=== PATIENT | female | born 1950 | race Asian ===

== ENCOUNTER 2016-02-11 18:45 | Inpatient (IN) | payer MEDICARE, MEDICAID ==
[~2016-02-11] VITALS: Ht 157.5 cm; Wt 50.8 kg
[~2016-02-11 18:45] MED LIST: UNOBMED
[2016-02-11 20:00] LABS: BASOPHILS % (AUTO) 0.6 % (0.0-2.0); EOSINOPHILS % (AUTO) 0.8 % (0.0-3.0); LYMPHOCYTES % (AUTO) 13.1 % (20.0-45.0); MEAN CORPUSCULAR HGB CONC 31.6 G/DL (32.0-36.0); MEAN CORPUSCULAR VOLUME 95 FL (80-99); MEAN PLATELET VOLUME 6.7 FL (6.5-10.1); MONOCYTES % (AUTO) 4.5 % (1.0-10.0); NEUTROPHILS % (AUTO) 80.9 % (45.0-75.0); PLATELET COUNT 183 K/UL (150-450); RED BLOOD COUNT 4.42 M/UL (4.20-5.40); RED CELL DISTRIBUTION WIDTH 11.8 % (11.6-14.8)
[2016-02-11 20:02] VITALS: BP 112/66
[2016-02-11 20:16] LABS: TROPONIN I < 0.30 ng/mL (<=0.30)
[2016-02-11 20:19] LABS: ALBUMIN/GLOBULIN RATIO 1.6 (1.0-2.7); CALCIUM 9.6 mg/dL (8.6-10.2); GLOMERULAR FILTRATION RATE 55.7 mL/min (>60); POTASSIUM 4.2 mEQ/L (3.4-4.9); TOTAL PROTEIN 7.6 g/dL (6.6-8.7)
[2016-02-11 20:34] VITALS: BP 126/71
[2016-02-11 20:51] LABS: CKMB < 1.5 ng/mL (< 3.8)
[2016-02-11 22:06] VITALS: BP 120/54
--- NOTE | 2016-02-11 22:08 | Emergency Room Report ---
History of Present Illness General Chief Complaint: Seizure Source: Patient, EMS Present Illness HPI This patient is brought in by EMS. She was at a restaurant and was observed having right EMS say was a seizure. The patient states that she looks to the side and suddenly felt lightheaded and fainted. The patient was confused after the event. At this time, the patient feels back to baseline. Patient states that she had a similar episode previously and was found to have an insufficient heart valve. She is unsure which valve. She states that she has a planned valve replacement on the of this month. She denies recent illness. She denies nausea or vomiting. She denies abdominal pain or chest pain. She has no other complaints. Allergies: Coded Allergies: UNABLE TO ASSESS (Unverified , 02/11/16) Patient History Past Medical History: see triage record, other - Heart valve insufficiency Social History: Denies: alcohol use, drug use, smoking Reviewed Nursing Documentation: PMH: Agreed, PSxH: Agreed Nursing Documentation-PMH Past Medical History: Deferred Review of Systems All Other Systems: negative except mentioned in HPI Physical Exam Vital Signs Date Time Temp Pulse Resp B/P Pulse Ox O2 Delivery O2 Flow Rate FiO2 02/11/16 18:38 97.7 116 20 144/93 99 Room Air Sp02 EP Interpretation: reviewed, normal General Appearance: no apparent distress, alert, GCS 15, non-toxic Head: normocephalic, atraumatic Eyes: bilateral eye PERRL, bilateral eye normal inspection ENT: hearing grossly normal, normal pharynx, no angioedema, normal voice Neck: full range of motion, supple/symm/no masses Respiratory: chest non-tender, lungs clear, normal breath sounds, speaking full sentences Cardiovascular #1: regular rate, rhythm, no edema Gastrointestinal: normal bowel sounds, non tender, soft, non-distended, no guarding, no rebound Rectal: deferred Musculoskeletal: back normal, gait/station normal, normal range of motion, non- tender Neurologic: alert, oriented x3, responsive, motor strength/tone normal, sensory intact, speech normal Psychiatric: judgement/insight normal, memory normal, mood/affect normal, no suicidal/homicidal ideation Skin: normal color, no rash, warm/dry, well hydrated Medical Decision Making Diagnostic Impression: Primary Impression: Syncope vs seizure ER Course This patient presents with an episode that is of uncertain type. This is a syncope versus a seizure. This could be complicated syncope. Regardless, the patient has structural heart disease. She is a planned bowel replacement. She is high risk for pathologic arrhythmia causing either syncope or seizure. She did have a PE on telemetry here in the emergency department. No pathologic rhythm on the monitor. This patient will be admitted on telemetry for observation and further evaluation and treatment. Labs Test 02/11/16 19:45 02/11/16 21:38 White Blood Count 9.0 K/UL (4.8-10.8) Red Blood Count 4.42 M/UL (4.20-5.40) Hemoglobin 13.3 G/DL (12.0-16.0) Hematocrit 41.9 % (37.0-47.0) Mean Corpuscular Volume 95 FL (80-99) Mean Corpuscular Hemoglobin 30.0 PG (27.0-31.0) Mean Corpuscular Hemoglobin Concent 31.6 G/DL (32.0-36.0) Red Cell Distribution Width 11.8 % (11.6-14.8) Platelet Count 183 K/UL (150-450) Mean Platelet Volume 6.7 FL (6.5-10.1) Neutrophils (%) (Auto) 80.9 % (45.0-75.0) Lymphocytes (%) (Auto) 13.1 % (20.0-45.0) Monocytes (%) (Auto) 4.5 % (1.0-10.0) Eosinophils (%) (Auto) 0.8 % (0.0-3.0) Basophils (%) (Auto) 0.6 % (0.0-2.0) Sodium Level 138 mEQ/L (135-145) Potassium Level 4.2 mEQ/L (3.4-4.9) Chloride Level 94 mEQ/L (98-107) Carbon Dioxide Level 32 mEQ/L (20-30) Anion Gap 12 (5-15) Blood Urea Nitrogen 27 mg/dL (7-23) Creatinine 1.0 mg/dL (0.5-0.9) Estimat Glomerular Filtration Rate 55.7 mL/min (>60) Glucose Level 165 mg/dL (74-106) Calcium Level 9.6 mg/dL (8.6-10.2) Total Bilirubin 0.4 mg/dL (0.0-1.2) Aspartate Amino Transf (AST/SGOT) 17 U/L (5-40) Alanine Aminotransferase (ALT/SGPT) 8 U/L (3-33) Alkaline Phosphatase 75 U/L (35-104) Total Creatine Kinase 51 U/L (26-140) Creatine Kinase MB < 1.5 ng/mL (< 3.8) Creatine Kinase MB Relative Index 2.9 Troponin I < 0.30 ng/mL (<=0.30) Total Protein 7.6 g/dL (6.6-8.7) Albumin 4.7 g/dL (3.5-5.2) Globulin 2.9 g/dL Albumin/Globulin Ratio 1.6 (1.0-2.7) Urine Color Pale yellow Urine Appearance Clear Urine pH 7 (4.5-8.0) Urine Specific [place] 1.010 (1.005-1.035) Urine Protein Negative (NEGATIVE) Urine Glucose (UA) Negative (NEGATIVE) Urine Ketones Negative (NEGATIVE) Urine Occult Blood Negative (NEGATIVE) Urine Nitrite Negative (NEGATIVE) Urine Bilirubin Negative (NEGATIVE) Urine Urobilinogen Normal MG/DL (0.0-1.0) Urine Leukocyte Esterase 3+ (NEGATIVE) Urine Opiates Screen Negative (NEGATIVE) Urine Barbiturates Screen Negative (NEGATIVE) Phencyclidine (PCP) Screen Negative (NEGATIVE) Urine Amphetamines Screen Negative (NEGATIVE) Urine Benzodiazepines Screen Negative (NEGATIVE) Urine Cocaine Screen Negative (NEGATIVE) Urine Marijuana (THC) Screen Negative (NEGATIVE) EKG Diagnostic Results Rate: normal, tachycardiac ST Segments: no acute changes Other Impression Atrial fibrillation Rhythm Strip Diag. Results EP Interpretation: yes Rate: 90's Other Impression ectopy. PVC's, PAC's Chest X-Ray Diagnostic Results EP Interpretation: Yes Findings: no consolidation, no effusion, no pneumothorax, no acute cardiopulmonary disease Number of Views: 1 Last Vital Signs Date Time Temp Pulse Resp B/P Pulse Ox O2 Delivery O2 Flow Rate FiO2 02/11/16 20:34 99.1 107 25 126/71 100 Room Air Disposition: ADMITTED INPATIENT Condition: Serious Referrals: NOT CHOSEN IPA/,REFERRING (PCP) SANDRA KERR D.O. Feb 11, 2016 22:08
[2016-02-11 22:14] LABS: APPEARANCE,URINE CLEAR; KETONES,URINE NEGATIVE (NEGATIVE); LEUKOCYTE ESTERASE ,URINE 3+ (NEGATIVE); NITRITE,URINE NEGATIVE (NEGATIVE); PH,URINE 7 (4.5-8.0); PROTEIN,URINE NEGATIVE (NEGATIVE); UROBILINOGEN,URINE NORMAL MG/DL (0.0-1.0)
[2016-02-11 22:37] LABS: BACTERIA,URINE FEW /HPF; SQUAMOUS EPITHELIAL CELL,UR OCCASIONAL /LPF (NONE/OCC)
[2016-02-11 23:40] VITALS: BP 111/59
[2016-02-12] VITALS (8 sets, daily range): BP systolic 91–157; BP diastolic 53–86
[2016-02-12] MEDS ORDERED: D5 1/2NS 1,000 ML IV ONE (02:30)
[2016-02-12 05:04] LABS: BASOPHILS % (AUTO) 0.4 % (0.0-2.0); EOSINOPHILS % (AUTO) 0.3 % (0.0-3.0); LYMPHOCYTES % (AUTO) 19.5 % (20.0-45.0); MEAN CORPUSCULAR HEMOGLOBIN 30.7 PG (27.0-31.0); MEAN CORPUSCULAR HGB CONC 32.5 G/DL (32.0-36.0); MEAN CORPUSCULAR VOLUME 94 FL (80-99); MEAN PLATELET VOLUME 7.1 FL (6.5-10.1); NEUTROPHILS % (AUTO) 73.9 % (45.0-75.0); PLATELET COUNT 154 K/UL (150-450); RED BLOOD COUNT 3.61 M/UL (4.20-5.40); RED CELL DISTRIBUTION WIDTH 11.4 % (11.6-14.8); WHITE BLOOD COUNT 8.9 K/UL (4.8-10.8)
[2016-02-12 06:11] LABS: ALANINE AMINOTRANSFERASE 7 U/L (3-33); ALBUMIN/GLOBULIN RATIO 1.7 (1.0-2.7); ANION GAP 16 (5-15); ASPARTATE AMINO TRANSFERASE 16 U/L (5-40); CALCIUM 9.2 mg/dL (8.6-10.2); CARBON DIOXIDE 27 mEQ/L (20-30); CHLORIDE 100 mEQ/L (98-107); CHOLESTEROL 181 mg/dL (< 200); CHOLESTEROL/HDL RATIO 5.2 (3.3-4.4); CREATININE 0.7 mg/dL (0.5-0.9); GLOMERULAR FILTRATION RATE > 60 mL/min (>60); HEMOLYSIS 7; LDL CHOLESTEROL (CALC.) 131 mg/dL (60-99); PHOSPHORUS 3.5 mg/dL (2.5-4.8); POTASSIUM 3.6 mEQ/L (3.4-4.9); SODIUM 143 mEQ/L (135-145); TOTAL PROTEIN 6.6 g/dL (6.6-8.7)
[2016-02-12 06:25] LABS: DIGOXIN 0.5 ng/mL (0.5-2.0)
[2016-02-12] MEDS ORDERED: Carvedilol 6.25mg Tab ORAL SCH (09:00)
[2016-02-12] MEDS ORDERED: Lisinopril 2.5mg tab ORAL SCH (09:00)
[2016-02-12] MEDS: Eliquis 2.5mg tablet ORAL SCH ×2 (09:02→17:32)
[2016-02-12] MEDS: Digoxin 0.125mg tab ORAL SCH (09:03)
--- NOTE | 2016-02-12 11:01 | Diagnostic Imaging Report ---
Indication: Chest Pain Comparison: None A single view chest radiograph was obtained. Findings: No definite infiltrate or pulmonary vascular congestion identified. The heart is enlarged. The aorta is mildly enlarged consistent with atherosclerotic vascular disease. The bones are osteopenic. Impression: No acute disease
--- NOTE | 2016-02-12 12:23 | Cardiac Electrophysiology PN ---
Subjective Subjective [id number]. DC Lisinopril, Decrease Coreg to 3.125. Objective Last 24 Hour Vital Signs Date Time Temp Pulse Resp B/P Pulse Ox O2 Delivery O2 Flow Rate FiO2 02/12/16 10:23 70 94/56 02/12/16 09:03 72 02/12/16 09:00 91/47 02/12/16 08:00 70 02/12/16 08:00 97.7 79 20 94/56 96 Room Air 02/12/16 04:00 97.3 67 20 94/59 96 Room Air 02/12/16 03:53 68 02/12/16 00:55 97.9 80 17 108/69 99 Room Air 02/12/16 00:45 97.9 80 17 108/69 99 Room Air 02/11/16 23:40 97.8 87 18 111/59 99 Room Air 02/11/16 22:06 98.7 99 19 120/54 97 Room Air 02/11/16 20:34 99.1 107 25 126/71 100 Room Air 02/11/16 20:02 97.7 105 16 112/66 99 Room Air 02/11/16 19:05 88 16 Room Air 02/11/16 18:38 97.7 116 20 144/93 99 Room Air Intake and Output 02/11/16 02/12/16 19:00 07:00 Intake Total 316 ml Balance 316 ml Intake Oral 0 ml IV Total 316 ml # Voids 1 Laboratory Tests Test 02/11/16 19:45 02/11/16 21:38 02/12/16 03:15 White Blood Count 9.0 K/UL (4.8-10.8) 8.9 K/UL (4.8-10.8) Red Blood Count 4.42 M/UL (4.20-5.40) 3.61 M/UL (4.20-5.40) L Hemoglobin 13.3 G/DL (12.0-16.0) 11.1 G/DL (12.0-16.0) L Hematocrit 41.9 % (37.0-47.0) 34.0 % (37.0-47.0) L Mean Corpuscular Volume 95 FL (80-99) 94 FL (80-99) Mean Corpuscular Hemoglobin 30.0 PG (27.0-31.0) 30.7 PG (27.0-31.0) Mean Corpuscular Hemoglobin Concent 31.6 G/DL (32.0-36.0) L 32.5 G/DL (32.0-36.0) Red Cell Distribution Width 11.8 % (11.6-14.8) 11.4 % (11.6-14.8) L Platelet Count 183 K/UL (150-450) 154 K/UL (150-450) Mean Platelet Volume 6.7 FL (6.5-10.1) 7.1 FL (6.5-10.1) Neutrophils (%) (Auto) 80.9 % (45.0-75.0) H 73.9 % (45.0-75.0) Lymphocytes (%) (Auto) 13.1 % (20.0-45.0) L 19.5 % (20.0-45.0) L Monocytes (%) (Auto) 4.5 % (1.0-10.0) 6.0 % (1.0-10.0) Eosinophils (%) (Auto) 0.8 % (0.0-3.0) 0.3 % (0.0-3.0) Basophils (%) (Auto) 0.6 % (0.0-2.0) 0.4 % (0.0-2.0) Sodium Level 138 mEQ/L (135-145) 143 mEQ/L (135-145) Potassium Level 4.2 mEQ/L (3.4-4.9) 3.6 mEQ/L (3.4-4.9) Chloride Level 94 mEQ/L (98-107) L 100 mEQ/L (98-107) Carbon Dioxide Level 32 mEQ/L (20-30) H 27 mEQ/L (20-30) Anion Gap 12 (5-15) 16 (5-15) H Blood Urea Nitrogen 27 mg/dL (7-23) H 17 mg/dL (7-23) Creatinine 1.0 mg/dL (0.5-0.9) H 0.7 mg/dL (0.5-0.9) Estimat Glomerular Filtration Rate 55.7 mL/min (>60) > 60 mL/min (>60) Glucose Level 165 mg/dL (74-106) H 115 mg/dL (74-106) H Calcium Level 9.6 mg/dL (8.6-10.2) 9.2 mg/dL (8.6-10.2) Total Bilirubin 0.4 mg/dL (0.0-1.2) 0.8 mg/dL (0.0-1.2) Aspartate Amino Transf (AST/SGOT) 17 U/L (5-40) 16 U/L (5-40) Alanine Aminotransferase (ALT/SGPT) 8 U/L (3-33) 7 U/L (3-33) Alkaline Phosphatase 75 U/L (35-104) 62 U/L (35-104) Total Creatine Kinase 51 U/L (26-140) Creatine Kinase MB < 1.5 ng/mL (< 3.8) Creatine Kinase MB Relative Index 2.9 Troponin I < 0.30 ng/mL (<=0.30) Total Protein 7.6 g/dL (6.6-8.7) 6.6 g/dL (6.6-8.7) Albumin 4.7 g/dL (3.5-5.2) 4.2 g/dL (3.5-5.2) Globulin 2.9 g/dL 2.4 g/dL Albumin/Globulin Ratio 1.6 (1.0-2.7) 1.7 (1.0-2.7) Urine Color Pale yellow Urine Appearance Clear Urine pH 7 (4.5-8.0) Urine Specific [place] 1.010 (1.005-1.035) Urine Protein Negative (NEGATIVE) Urine Glucose (UA) Negative (NEGATIVE) Urine Ketones Negative (NEGATIVE) Urine Occult Blood Negative (NEGATIVE) Urine Nitrite Negative (NEGATIVE) Urine Bilirubin Negative (NEGATIVE) Urine Urobilinogen Normal MG/DL (0.0-1.0) Urine Leukocyte Esterase 3+ (NEGATIVE) H Urine RBC 2-4 /HPF (0 - 2) H Urine WBC 2-4 /HPF (0 - 2) Urine Squamous Epithelial Cells Occasional /LPF Urine Bacteria Few /HPF (NONE) Urine Opiates Screen Negative (NEGATIVE) Urine Barbiturates Screen Negative (NEGATIVE) Phencyclidine (PCP) Screen Negative (NEGATIVE) Urine Amphetamines Screen Negative (NEGATIVE) Urine Benzodiazepines Screen Negative (NEGATIVE) Urine Cocaine Screen Negative (NEGATIVE) Urine Marijuana (THC) Screen Negative (NEGATIVE) Phosphorus Level 3.5 mg/dL (2.5-4.8) Magnesium Level 2.0 mg/dL (1.7-2.5) Triglycerides Level 73 mg/dL (< 150) Cholesterol Level 181 mg/dL (< 200) LDL Cholesterol 131 mg/dL (60-99) H HDL Cholesterol 35 mg/dL (> 60) Cholesterol/HDL Ratio 5.2 (3.3-4.4) H Digoxin Level 0.5 ng/mL (0.5-2.0) JULIANNA MCNEILL Feb 12, 2016 12:23
--- NOTE | 2016-02-12 13:56 | Cardiology Report ---
APPROVED REPORT EXAM: Two-dimensional and M-mode echocardiogram with Doppler and color Doppler. M-Mode DIMENSIONS IVSd1.1 (0.7-1.1cm)Left Atrium (MM)4.3 (1.6-4.0cm) LVDd4.3 (3.5-5.6cm)Aortic Root2.8 (2.0-3.7cm) PWd1.1 (0.7-1.1cm)Aortic Cusp Exc.1.6 (1.5-2.0cm) LVDs3.3 (2.5-4.0cm) PWs1.0 cm Technically difficult study due to poor acoustic windows. Mid-anterior septal hypokinesis. Left ventricular ejection fraction estimated to be 50-55%. No evidence of ventricular hypertrophy. Mild Bi-atrial enlargment seen in 2D. Focal aortic valve sclerosis with adequate cusp excursion. Mildy thickened mitral valve leaflets with normal excursion. Pulmonic valve not well visualized. Normal tricuspid valve structure. IVC dilated at 2.0cm with physiologic collapse. RAP 10mmHg. A color flow and spectral Doppler study was performed and revealed: No aortic regurgitation. Mild central mitral regurgitation. Mitral inflow velocities not indicated due to A-fib. Mild tricuspid regurgitation. Tricuspid systolic velocities suggests peak right ventricular systolic pressure of 32 mmHg. No pulmonic regurgitation present.
--- NOTE | 2016-02-12 14:35 | History & Physical ---
History and Physical History & Physicial Dictated for Int Med-Dr Burgess no.[id number]. CONCEPCION KATE Feb 12, 2016 14:35
--- NOTE | 2016-02-12 23:27 | History and Physical Report ---
DATE OF ADMISSION: 02/12/2016 CHIEF COMPLAINT: The patient is a 66-year-old Khmer-speaking female, who presents with a chief complaint of near syncope. HISTORY OF PRESENT ILLNESS: The patient states that she was eating in a restaurant. The patient turned her head to look at the clock. The patient apparently blacked out. The patient states that she was shaking. The patient was confused afterwards. The patient was transported to [facility]. The patient was admitted for near syncope. PAST MEDICAL HISTORY: Significant for heart valve insufficiency. The patient does not know which heart valve is insufficient. The patient was scheduled for a heart valve replacement on 03/01/2016. PAST SURGICAL HISTORY: Significant for: 1. Total abdominal hysterectomy. 2. Appendectomy. CURRENT MEDICATIONS: Unknown. ALLERGIES: No known drug allergies. SOCIAL HISTORY: The patient is single and is unemployed. The patient denies tobacco or alcohol use. REVIEW OF SYSTEMS: Constitutional: The patient denies weight loss or weight gain. The patient denies fevers or chills. HEENT: The patient denies ear or throat pain. Cardiovascular: The patient denies palpitations or chest pain. Chest: The patient denies wheeze or shortness of breath. Abdomen: The patient denies nausea, vomiting, diarrhea, or constipation. Genitourinary: The patient denies dysuria or increased frequency of urination. Neuromuscular: The patient denies seizures or generalized weakness. PHYSICAL EXAMINATION: VITAL SIGNS: Temperature is 97.3 degrees, respirations 20, pulse 67, and blood pressure 94/59. GENERAL: The patient is well-developed and well-nourished female, no apparent distress. HEENT: Eyes, pupils are equal and responsive to light and accommodation. Extraocular movements are intact. NECK: Supple. No lymphadenopathy. CHEST: Lungs are clear to auscultation bilaterally without wheezes or rales. CARDIOVASCULAR: Regular rhythm and rate. S1 and S2 are normal. A 2/6 systolic ejection murmur. ABDOMEN: Soft, nontender, and nondistended. Positive bowel sounds. No evidence of hepatosplenomegaly. Currently no rebound or guarding. EXTREMITIES: Negative for clubbing, cyanosis, or or edema. RECTAL/GENITAL: Refused. NEUROLOGIC: Cranial nerves II through XII are grossly intact without focal deficits. Motor strength is 5/5 bilaterally. Deep tendon reflexes are 2+ plantar. LABORATORY STUDIES: WBC is 9.0, hemoglobin 13.3, hematocrit 41.9, and platelets 183,000. Sodium is 138, potassium 4.2, chloride 94, CO2 32, BUN 27, creatinine 1.0, and glucose 165. ASSESSMENT: This is a 66-year-old female: 1. Near syncope. 2. Heart valve insufficiency. 3. Hypertension. TREATMENT: 1. Near syncope, A Neurology consultation will be obtained with Dr. Lara. Nursing secondary to valvular insufficiency as above. An echocardiogram is pending. Cardiology consultation will be obtained with Dr. Carrington Gaytan. 2. Hypertension. Continue lisinopril 5 mg one tablet p.o. daily. Alberto Olvera M.D. DR: Brock JOB#: [id number] CC:
[2016-02-13 03:56] VITALS: BP 94/61
--- NOTE | 2016-02-13 04:18 | Consultation ---
DATE OF CONSULTATION: 02/12/2016 CARDIOLOGY CONSULTATION CONSULTING PHYSICIAN: Brandon Knapp M.D. REFERRING PHYSICIAN: Tashi Burgess M.D. REASON FOR CONSULTATION: Atrial fibrillation, history of valve problem, and syncope. HISTORY OF PRESENT ILLNESS: The patient is a 66-year-old Occitan lady with history of atrial fibrillation on digoxin, Coreg, and Xarelto as well as hypertension, who was in a restaurant, was observed having a seizure versus syncope. Apparently, the patient had looked to the side and then suddenly she fainted. The patient was confused after the event. The patient has had similar episodes previously and was found to have insufficient heart problem. The patient stated that she was supposed to have a valve replacement on 03/01/2016. In the emergency room, the patient was found to be in atrial fibrillation with rapid ventricular response of 113 even though the heart rate dropped to 30s overnight. PAST MEDICAL HISTORY: As per history of present illness. FAMILY HISTORY: Noncontributory. SOCIAL HISTORY: She lives at home. Does not smoke or drink alcohol. REVIEW OF SYSTEM: Review of systems was negative other than what was mentioned in history of present illness. PHYSICAL EXAMINATION: VITAL SIGNS: Blood pressure is 94/56, pulse 70, respirations 18, and she is afebrile. HEAD AND NECK: Shows no JVD. LUNGS: Coarse rhonchi. CARDIOVASCULAR: Shows irregularly irregular S1 and S2 with 2/6 systolic murmur. ABDOMEN: Soft. EXTREMITIES: No pitting edema. LABORATORY DATA: Her labs show white count of 8.9, hemoglobin 11.1, hematocrit 34, and platelet count of 154,000. Sodium 142, potassium 3.2, BUN 17, creatinine 0.7, and glucose of 115. Troponin is negative. Digoxin level is 0.5. ASSESSMENT AND PLAN: 1. Syncope. It could be secondary to bradycardia in this patient with atrial fibrillation. The patient's heart rate ranged between 35 to 120 overnight. In view of severe bradycardia, I would decrease her Coreg to 3.125 mg twice a day. Continue digoxin 0.125 mg daily. We will watch the patient on telemetry. The patient is also on Eliquis 5 mg b.i.d. 2. Questionable cardiac valve issues. The preliminary echocardiogram reported ejection fraction of 50% to 55% with moderate mitral regurgitation. Final cardiac result is pending. 3. Hypertension. Blood pressure is borderline low. I would discontinue Zestril. Continue digoxin and Coreg as there is no evidence of cardiomyopathy based on echocardiogram with ejection fraction more than 50%. 4. CT of the brain should also be done, as the patient is on anticoagulation with apixaban and seizure versus syncopal event. Thank you very much, Dr. Burgess, for allowing me to participate in the care of this patient. Please do not hesitate to contact me for any questions regarding my evaluation. Brandon Knapp M.D. DR: CABRERA JOB#: [id number] CC:
[2016-02-13 04:30] LABS: BASOPHILS % (AUTO) 0.9 % (0.0-2.0); EOSINOPHILS % (AUTO) 1.7 % (0.0-3.0); MEAN CORPUSCULAR HEMOGLOBIN 30.2 PG (27.0-31.0); MEAN CORPUSCULAR HGB CONC 32.1 G/DL (32.0-36.0); MEAN CORPUSCULAR VOLUME 94 FL (80-99); MEAN PLATELET VOLUME 7.4 FL (6.5-10.1); MONOCYTES % (AUTO) 7.2 % (1.0-10.0); NEUTROPHILS % (AUTO) 49.1 % (45.0-75.0); PLATELET COUNT 168 K/UL (150-450); RED CELL DISTRIBUTION WIDTH 11.8 % (11.6-14.8); WHITE BLOOD COUNT 5.3 K/UL (4.8-10.8)
[2016-02-13 05:14] LABS: ANION GAP 9 (5-15); CALCIUM 9.3 mg/dL (8.6-10.2); CARBON DIOXIDE 31 mEQ/L (20-30); CHLORIDE 102 mEQ/L (98-107); CREATININE 0.7 mg/dL (0.5-0.9); GLOMERULAR FILTRATION RATE > 60 mL/min (>60); HEMOLYSIS 4; POTASSIUM 3.7 mEQ/L (3.4-4.9); SODIUM 142 mEQ/L (135-145)
[2016-02-13 05:41] LABS: TROPONIN I < 0.30 ng/mL (<=0.30)
[2016-02-13 08:00] VITALS: BP 92/57
[2016-02-13] MEDS: Digoxin 0.125mg tab ORAL SCH (08:37)
[2016-02-13] MEDS: Eliquis 2.5mg tablet ORAL SCH ×2 (08:38→17:08)
--- NOTE | 2016-02-13 10:29 | Diagnostic Imaging Report ---
Indication: Seizure Technique: Contiguous 5 mm thick transaxial imaging of the head obtained in a Siemens Sensation [address] scanner. Soft tissue and bone windows generated. Total Dose length Product (DLP): [address] Dose Index Volume (CTDIvol): 70.38 mGy Comparison: none Findings: There is a focus of cystic encephalomalacia involving the right frontal and temporal lobe in the region of the sylvian fissure. This is consistent with an old infarct. There is mild prominence of the ventricles, basal cisterns, and cerebral sulci consistent with atrophy. Mild, nonspecific, white matter hypoattenuation is noted throughout the brain consistent with chronic small vessel disease. There is no midline shift, edema, acute hemorrhage, mass effect, or abnormal extra-axial fluid collections. Bones and extra osseous soft tissues are unremarkable. Impression: No acute intracranial bleed, mass effect or edema. 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 Mild atrophy of the brain. Nonspecific white matter hypoattenuation probably due to chronic small vessel disease. The CT scanner at [facility] is accredited by the [employer] and the scans are performed using protocols designed to limit radiation exposure to as low as reasonably achievable to attain images of sufficient resolution adequate for diagnostic evaluation.
[2016-02-13 12:00] VITALS: BP 99/66
--- NOTE | 2016-02-13 12:56 | Cardiac Electrophysiology PN ---
Subjective Subjective Alert. Still in atrial fib but rate is better. No chest pain or SOB. Objective Last 24 Hour Vital Signs Date Time Temp Pulse Resp B/P Pulse Ox O2 Delivery O2 Flow Rate FiO2 02/13/16 12:00 97.0 83 18 99/66 97 Room Air 02/13/16 08:38 57 88/57 02/13/16 08:37 69 02/13/16 08:00 97.0 69 20 92/57 98 Room Air 02/13/16 08:00 71 02/13/16 04:00 57 02/13/16 03:56 97.5 55 18 94/61 97 Room Air 02/13/16 00:00 66 02/12/16 23:37 97.5 60 18 96/58 95 Room Air 02/12/16 21:00 79 99/59 02/12/16 21:00 79 18 99/59 99 Room Air 02/12/16 20:00 75 02/12/16 19:00 98.1 81 18 157/86 97 Room Air 02/12/16 16:00 98.2 79 18 100/55 96 Room Air 02/12/16 16:00 75 Intake and Output 02/12/16 02/13/16 19:00 07:00 Intake Total 1034 ml 450 ml Balance 1034 ml 450 ml Intake Oral 350 ml 450 ml IV Total 684 ml # Voids 2 5 Laboratory Tests Test 02/13/16 03:35 White Blood Count 5.3 K/UL (4.8-10.8) Red Blood Count 3.80 M/UL (4.20-5.40) L Hemoglobin 11.5 G/DL (12.0-16.0) L Hematocrit 35.8 % (37.0-47.0) L Mean Corpuscular Volume 94 FL (80-99) Mean Corpuscular Hemoglobin 30.2 PG (27.0-31.0) Mean Corpuscular Hemoglobin Concent 32.1 G/DL (32.0-36.0) Red Cell Distribution Width 11.8 % (11.6-14.8) Platelet Count 168 K/UL (150-450) Mean Platelet Volume 7.4 FL (6.5-10.1) Neutrophils (%) (Auto) 49.1 % (45.0-75.0) Lymphocytes (%) (Auto) 41.0 % (20.0-45.0) Monocytes (%) (Auto) 7.2 % (1.0-10.0) Eosinophils (%) (Auto) 1.7 % (0.0-3.0) Basophils (%) (Auto) 0.9 % (0.0-2.0) Sodium Level 142 mEQ/L (135-145) Potassium Level 3.7 mEQ/L (3.4-4.9) Chloride Level 102 mEQ/L (98-107) Carbon Dioxide Level 31 mEQ/L (20-30) H Anion Gap 9 (5-15) Blood Urea Nitrogen 14 mg/dL (7-23) Creatinine 0.7 mg/dL (0.5-0.9) Estimat Glomerular Filtration Rate > 60 mL/min (>60) Glucose Level 96 mg/dL (74-106) Calcium Level 9.3 mg/dL (8.6-10.2) Troponin I < 0.30 ng/mL (<=0.30) Pro-B-Type Natriuretic Peptide 429 pg/mL (0-125) H Objective 1. Syncope. It could be secondary to bradycardia in this patient with atrial fibrillation. Heart rate in 70s now despite Coreg 3.125 mg twice a day. Continue digoxin 0.125 mg daily and Eliquis [address] was negative. 2. Questionable cardiac valve issues. The preliminary echocardiogram reported ejection fraction of 50% to 55% with moderate mitral regurgitation. Final report is pending. Scheduled for surgery 02/28?! 3. Hypertension. Continue Coreg. JULIANNA TRAN RN Feb 13, 2016 12:56
[2016-02-13 16:00] VITALS: BP 103/72
--- NOTE | 2016-02-13 18:02 | Internal Med Progress Note ---
Subjective Date of Service: Feb 13, 2016 Physician Name MayConcepcion Attending Physician Tashi Burgess MD Current Medications Medications (Trade) Dose Ordered Sig/Davy Route PRN Reason Start Time Stop Time Status Last Admin Dose Admin Apixaban (Eliquis) 5 mg BID ORAL 02/12/16 09:00 03/13/16 08:59 02/13/16 17:08 Carvedilol (Coreg) 3.125 mg EVERY 12 HOURS ORAL 02/12/16 21:00 03/13/16 20:59 Digoxin (Lanoxin) 0.125 mg DAILY ORAL 02/12/16 09:00 03/13/16 08:59 02/13/16 08:37 Pantoprazole (Protonix) 40 mg DAILY ORAL 02/13/16 09:00 03/14/16 08:59 02/13/16 08:38 Allergies: Coded Allergies: No Known Allergies (Unverified , 02/12/16) ROS Limited/Unobtainable: No Constitutional: Reports: no symptoms HEENT: Reports: no symptoms Cardiovascular: Reports: no symptoms Respiratory: Reports: no symptoms Gastrointestinal/Abdominal: Reports: no symptoms Genitourinary: Reports: no symptoms Neurologic/Psychiatric: Reports: no symptoms Subjective 66 YO F admitted with near syncope and atrial fibrillation. Cover for Int Med- Dr Burgess. Objective Last Vital Signs Date Time Temp Pulse Resp B/P Pulse Ox O2 Delivery O2 Flow Rate FiO2 02/13/16 16:49 86 02/13/16 16:00 97.7 13 103/72 96 Room Air General Appearance: no apparent distress, alert, thin EENT: PERRL/EOMI, normal ENT inspection Neck: non-tender, normal alignment, supple, normal inspection Cardiovascular: normal peripheral pulses, normal rate, no gallop/murmur, no JVD , irregularly irregular Respiratory/Chest: chest wall non-tender, lungs clear, normal breath sounds, no respiratory distress, no accessory muscle use Abdomen: normal bowel sounds, non tender, soft, no organomegaly, no mass Extremities: normal range of motion 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, no motor/sensory deficits Skin: normal pigmentation, warm/dry Laboratory Tests Test 02/13/16 03:35 White Blood Count 5.3 K/UL (4.8-10.8) Red Blood Count 3.80 M/UL (4.20-5.40) L Hemoglobin 11.5 G/DL (12.0-16.0) L Hematocrit 35.8 % (37.0-47.0) L Mean Corpuscular Volume 94 FL (80-99) Mean Corpuscular Hemoglobin 30.2 PG (27.0-31.0) Mean Corpuscular Hemoglobin Concent 32.1 G/DL (32.0-36.0) Red Cell Distribution Width 11.8 % (11.6-14.8) Platelet Count 168 K/UL (150-450) Mean Platelet Volume 7.4 FL (6.5-10.1) Neutrophils (%) (Auto) 49.1 % (45.0-75.0) Lymphocytes (%) (Auto) 41.0 % (20.0-45.0) Monocytes (%) (Auto) 7.2 % (1.0-10.0) Eosinophils (%) (Auto) 1.7 % (0.0-3.0) Basophils (%) (Auto) 0.9 % (0.0-2.0) Sodium Level 142 mEQ/L (135-145) Potassium Level 3.7 mEQ/L (3.4-4.9) Chloride Level 102 mEQ/L (98-107) Carbon Dioxide Level 31 mEQ/L (20-30) H Anion Gap 9 (5-15) Blood Urea Nitrogen 14 mg/dL (7-23) Creatinine 0.7 mg/dL (0.5-0.9) Estimat Glomerular Filtration Rate > 60 mL/min (>60) Glucose Level 96 mg/dL (74-106) Calcium Level 9.3 mg/dL (8.6-10.2) Troponin I < 0.30 ng/mL (<=0.30) Pro-B-Type Natriuretic Peptide 429 pg/mL (0-125) H Intake and Output 02/12/16 02/13/16 19:00 07:00 Intake Total 1034 ml 450 ml Balance 1034 ml 450 ml Intake Oral 350 ml 450 ml IV Total 684 ml # Voids 2 5 Assessment/Plan Problem List: (1) HTN (hypertension) Assessment & Plan: Cont coreg. (2) A-fib Assessment & Plan: Continue digoxin and eliquis. See cardiology note. (3) Syncope Assessment & Plan: Cardiology workup in progress. Status: not improved CONCEPCION KATE Feb 13, 2016 18:02
[2016-02-13 20:00] VITALS: BP 97/56
[2016-02-14] VITALS: BP 109/72
[2016-02-14 04:00] VITALS: BP 97/58
[2016-02-14 05:57] LABS: BASOPHILS % (AUTO) 0.8 % (0.0-2.0); EOSINOPHILS % (AUTO) 1.5 % (0.0-3.0); LYMPHOCYTES % (AUTO) 35.5 % (20.0-45.0); MEAN CORPUSCULAR HEMOGLOBIN 30.5 PG (27.0-31.0); MEAN CORPUSCULAR HGB CONC 31.8 G/DL (32.0-36.0); MEAN CORPUSCULAR VOLUME 96 FL (80-99); MEAN PLATELET VOLUME 6.9 FL (6.5-10.1); MONOCYTES % (AUTO) 7.1 % (1.0-10.0); NEUTROPHILS % (AUTO) 55.1 % (45.0-75.0); PLATELET COUNT 154 K/UL (150-450); RED BLOOD COUNT 3.65 M/UL (4.20-5.40); RED CELL DISTRIBUTION WIDTH 11.8 % (11.6-14.8); WHITE BLOOD COUNT 5.4 K/UL (4.8-10.8)
[2016-02-14 06:33] LABS: ANION GAP 11 (5-15); CALCIUM 9.1 mg/dL (8.6-10.2); CARBON DIOXIDE 30 mEQ/L (20-30); CHLORIDE 101 mEQ/L (98-107); CREATININE 0.6 mg/dL (0.5-0.9); GLOMERULAR FILTRATION RATE > 60 mL/min (>60); HEMOLYSIS 6; POTASSIUM 3.8 mEQ/L (3.4-4.9); SODIUM 142 mEQ/L (135-145)
[2016-02-14 08:00] VITALS: BP 97/68
[2016-02-14] MEDS: Digoxin 0.125mg tab ORAL SCH (09:05)
[2016-02-14] MEDS: Eliquis 2.5mg tablet ORAL SCH ×2 (09:05→18:04)
[2016-02-14 12:00] VITALS: BP 103/66
--- NOTE | 2016-02-14 13:18 | Internal Med Progress Note ---
Subjective Physician Name Alberto Kate Attending Physician Tashi Burgess MD Current Medications Medications (Trade) Dose Ordered Sig/Davy Route PRN Reason Start Time Stop Time Status Last Admin Dose Admin Apixaban (Eliquis) 5 mg BID ORAL 02/12/16 09:00 03/13/16 08:59 02/14/16 09:05 Carvedilol (Coreg) 3.125 mg EVERY 12 HOURS ORAL 02/12/16 21:00 03/13/16 20:59 Digoxin (Lanoxin) 0.125 mg DAILY ORAL 02/12/16 09:00 03/13/16 08:59 02/14/16 09:05 Pantoprazole (Protonix) 40 mg DAILY ORAL 02/13/16 09:00 03/14/16 08:59 02/14/16 09:05 Allergies: Coded Allergies: No Known Allergies (Unverified , 02/12/16) Subjective 66 YO F admitted with near syncope and atrial fibrillation. Cover for Int Med- Dr Burgess. Objective Last Vital Signs Date Time Temp Pulse Resp B/P Pulse Ox O2 Delivery O2 Flow Rate FiO2 02/14/16 12:00 97.3 75 20 103/66 96 Room Air Laboratory Tests Test 02/14/16 03:45 White Blood Count 5.4 K/UL (4.8-10.8) Red Blood Count 3.65 M/UL (4.20-5.40) L Hemoglobin 11.1 G/DL (12.0-16.0) L Hematocrit 35.1 % (37.0-47.0) L Mean Corpuscular Volume 96 FL (80-99) Mean Corpuscular Hemoglobin 30.5 PG (27.0-31.0) Mean Corpuscular Hemoglobin Concent 31.8 G/DL (32.0-36.0) L Red Cell Distribution Width 11.8 % (11.6-14.8) Platelet Count 154 K/UL (150-450) Mean Platelet Volume 6.9 FL (6.5-10.1) Neutrophils (%) (Auto) 55.1 % (45.0-75.0) Lymphocytes (%) (Auto) 35.5 % (20.0-45.0) Monocytes (%) (Auto) 7.1 % (1.0-10.0) Eosinophils (%) (Auto) 1.5 % (0.0-3.0) Basophils (%) (Auto) 0.8 % (0.0-2.0) Sodium Level 142 mEQ/L (135-145) Potassium Level 3.8 mEQ/L (3.4-4.9) Chloride Level 101 mEQ/L (98-107) Carbon Dioxide Level 30 mEQ/L (20-30) Anion Gap 11 (5-15) Blood Urea Nitrogen 20 mg/dL (7-23) Creatinine 0.6 mg/dL (0.5-0.9) Estimat Glomerular Filtration Rate > 60 mL/min (>60) Glucose Level 100 mg/dL (74-106) Calcium Level 9.1 mg/dL (8.6-10.2) Digoxin Level 0.5 ng/mL (0.5-2.0) Intake and Output 02/13/16 02/14/16 19:00 07:00 Intake Total 300 ml 120 ml Balance 300 ml 120 ml Intake Oral 300 ml 120 ml # Voids 2 6 Objective General Appearance: no apparent distress, alert, thin EENT: PERRL/EOMI, normal ENT inspection Neck: non-tender, normal alignment, supple, normal inspection Cardiovascular: normal peripheral pulses, normal rate, no gallop/murmur, no JVD , irregularly irregular Respiratory/Chest: chest wall non-tender, lungs clear, normal breath sounds, no respiratory distress, no accessory muscle use Abdomen: normal bowel sounds, non tender, soft, no organomegaly, no mass Extremities: normal range of motion Neurologic: steam engineer II-XII grossly normal, no motor/sensory deficits Skin: normal pigmentation, warm/dry Assessment/Plan Problem List: (1) HTN (hypertension) Assessment & Plan: Cont coreg. (2) A-fib Assessment & Plan: Rapid ventricular rate; improving. Continue digoxin and eliquis. See cardiology note. (3) Syncope Assessment & Plan: Cardiology workup in progress. Status: not improved ALBERTO KATE Feb 14, 2016 13:18
[2016-02-14 16:06] VITALS: BP 97/59
[2016-02-14 20:00] VITALS: BP 100/52
[2016-02-15] VITALS: BP 104/58
[2016-02-15 04:00] VITALS: BP 106/58
[2016-02-15 06:06] LABS: BASOPHILS % (AUTO) 0.6 % (0.0-2.0); EOSINOPHILS % (AUTO) 1.9 % (0.0-3.0); LYMPHOCYTES % (AUTO) 42.7 % (20.0-45.0); MEAN CORPUSCULAR HEMOGLOBIN 30.9 PG (27.0-31.0); MEAN CORPUSCULAR HGB CONC 32.7 G/DL (32.0-36.0); MEAN CORPUSCULAR VOLUME 94 FL (80-99); MEAN PLATELET VOLUME 7.6 FL (6.5-10.1); MONOCYTES % (AUTO) 7.6 % (1.0-10.0); NEUTROPHILS % (AUTO) 47.2 % (45.0-75.0); PLATELET COUNT 166 K/UL (150-450); RED BLOOD COUNT 3.81 M/UL (4.20-5.40); RED CELL DISTRIBUTION WIDTH 11.3 % (11.6-14.8); WHITE BLOOD COUNT 4.9 K/UL (4.8-10.8)
[2016-02-15 06:29] LABS: ANION GAP 13 (5-15); CALCIUM 9.2 mg/dL (8.6-10.2); CARBON DIOXIDE 30 mEQ/L (20-30); CHLORIDE 99 mEQ/L (98-107); CREATININE 0.7 mg/dL (0.5-0.9); GLOMERULAR FILTRATION RATE > 60 mL/min (>60); HEMOLYSIS 3; POTASSIUM 3.8 mEQ/L (3.4-4.9); SODIUM 142 mEQ/L (135-145)
[2016-02-15 08:00] VITALS: BP 136/72
[2016-02-15] MEDS: Digoxin 0.125mg tab ORAL SCH (09:13)
[2016-02-15] MEDS: Eliquis 2.5mg tablet ORAL SCH ×2 (09:13→17:44)
[2016-02-15 12:00] VITALS: BP 91/68
[2016-02-15 16:14] VITALS: BP 94/56
--- NOTE | 2016-02-15 16:31 | Cardiac Electrophysiology PN ---
Subjective Subjective Alert in atrial fib with controlled rate. No chest pain or SOB. Objective Last 24 Hour Vital Signs Date Time Temp Pulse Resp B/P Pulse Ox O2 Delivery O2 Flow Rate FiO2 02/15/16 16:14 97.7 86 15 94/56 98 Room Air 02/15/16 12:00 97.9 85 21 91/68 98 Room Air 02/15/16 12:00 75 02/15/16 09:13 81 02/15/16 09:12 81 136/72 02/15/16 08:00 98 02/15/16 08:00 97.6 81 20 136/72 94 Room Air 02/15/16 04:00 98.0 67 18 106/58 97 Room Air 02/15/16 03:52 67 02/15/16 00:22 74 02/15/16 00:00 97.7 58 18 104/58 98 Room Air 02/14/16 21:03 75 100/52 02/14/16 20:00 69 02/14/16 20:00 98.1 75 19 100/52 98 Room Air Intake and Output 02/14/16 02/15/16 19:00 07:00 Intake Total 400 ml 600 ml Balance 400 ml 600 ml Intake Oral 400 ml 600 ml # Voids 2 4 Laboratory Tests Test 02/15/16 04:10 White Blood Count 4.9 K/UL (4.8-10.8) Red Blood Count 3.81 M/UL (4.20-5.40) L Hemoglobin 11.8 G/DL (12.0-16.0) L Hematocrit 35.9 % (37.0-47.0) L Mean Corpuscular Volume 94 FL (80-99) Mean Corpuscular Hemoglobin 30.9 PG (27.0-31.0) Mean Corpuscular Hemoglobin Concent 32.7 G/DL (32.0-36.0) Red Cell Distribution Width 11.3 % (11.6-14.8) L Platelet Count 166 K/UL (150-450) Mean Platelet Volume 7.6 FL (6.5-10.1) Neutrophils (%) (Auto) 47.2 % (45.0-75.0) Lymphocytes (%) (Auto) 42.7 % (20.0-45.0) Monocytes (%) (Auto) 7.6 % (1.0-10.0) Eosinophils (%) (Auto) 1.9 % (0.0-3.0) Basophils (%) (Auto) 0.6 % (0.0-2.0) Sodium Level 142 mEQ/L (135-145) Potassium Level 3.8 mEQ/L (3.4-4.9) Chloride Level 99 mEQ/L (98-107) Carbon Dioxide Level 30 mEQ/L (20-30) Anion Gap 13 (5-15) Blood Urea Nitrogen 16 mg/dL (7-23) Creatinine 0.7 mg/dL (0.5-0.9) Estimat Glomerular Filtration Rate > 60 mL/min (>60) Glucose Level 91 mg/dL (74-106) Calcium Level 9.2 mg/dL (8.6-10.2) Objective 1. Syncope. No MA. No . Heart rate in 70s on Dig and Coreg 3.125 mg twice a day. On Eliquis [address] was negative. 2. Questionable cardiac valve issues. Echocardiogram reported ejection fraction of 50% to 55% with moderate mitral regurgitation. Scheduled for surgery 02/28?! 3. Hypertension. Continue Coreg. ROBERT RN OK to DC from cardiac standpoint JULIANNA MCNEILL Feb 15, 2016 16:31
--- NOTE | 2016-02-15 19:15 | Discharge Summary ---
Discharge Summary Hospital Course Date of Admission Feb 11, 2016 at 22:55 Date of Discharge Admitting Diagnosis Syncope, Valve insufficiency HPI Soon H Oh is a 66 year old female who was admitted on Feb 11, 2016 at 22:55 for Syncope, Valve Insufficiency Hospital Course Dictated for Int med-Dr Burgess no. [id number]. Discharge Discharge Disposition Patient was discharged to Home (01) Discharge Diagnoses: CONCEPCION KATE Feb 15, 2016 19:15
--- NOTE | 2016-02-16 03:47 | Discharge Summary ---
DATE OF ADMISSION: 02/11/2016 DATE OF DISCHARGE: 02/15/2016 ADMITTING DIAGNOSES: 1. Near syncope. 2. Hypertension. 3. Atrial fibrillation. DISCHARGE DIAGNOSES: 1. Near syncope. 2. Hypertension. 3. Atrial fibrillation. HOSPITAL COURSE BY PROBLEM LIST: 1. Near syncope/atrial fibrillation. Cardiology consultation was obtained with Dr. Brandon Knapp. The patient underwent an echocardiogram, which revealed an ejection fraction of 50 to 55%. Near syncope was thought to be secondary to orthostatic hypotension. The patient's atrial fibrillation is now controlled. The patient is to follow up with Dr. Knapp as an outpatient. 2. Hypertension. The patient remained on Coreg 3.125 mg one tablet p.o. daily. DISCHARGE MEDICATIONS: Please refer to discharge medication list. DISCHARGE INSTRUCTIONS: The patient is discharged home today, 02/15/2016. The patient to follow up with her primary care physician, Dr. Persaud on 03/01/2016 as scheduled. Alberto Olvera M.D. DR: Marcio JOB#: [id number] CC:
== END 2016-02-15 19:20 | disposition home or self-care (01) | DRG 312 ==
LOC: EDBD 18:45 → EMR 18:56 → 2W 22:55 → EDBEDREQ 02-12 00:25 → 2W 02-12 01:50
DX: I95.1 Orthostatic hypotension (principal); I48.91 Unspecified atrial fibrillation; R00.1 Bradycardia, unspecified; I10 Essential (primary) hypertension; I34.0 Nonrheumatic mitral (valve) insufficiency
CPT/HCPCS: 36415; 70450; 71010; 80048; 80053; 80061; 80162; 80300; 81003; 82550; 82553; 82962; 83735; 83880; 84100; 84484; 85025; 93005; 93306